=== PATIENT | female | born 1945 | race Caucasian/White ===

== ENCOUNTER 2022-12-18 07:55 | Day surgery (SDC) | payer MEDICARE ==
[2022-12-17 11:30] VITALS: BMI 41.5
[~2022-12-18 07:55] MED LIST: ALPRAZolam 0.25 MG TAB PO PRN; ALPRAZolam 0.5 MG TAB PO PRN; NITROGLYCERIN SL TABS 0.4 MG TAB SUBLINGUAL PRN
[2022-12-18] MEDS ORDERED: SODIUM CHLORIDE 0.9% 1,000 ML IV ONE (08:09)
[2022-12-18 08:29] LABS: Anisocytosis Slight; Basophils % (A) 0 %; Eosinophils # (A) 0.3 k/uL (0-0.7); Eosinophils % (A) 4 %; HGB 9.5 gm/dL (11.4-16.0); Lymphocytes # (A) 1.1 k/uL (1.0-4.8); Lymphocytes % (A) 17 %; MCHC 33.8 g/dL (31.0-37.0); MCV 85.8 fL (80.0-100.0); Mean Platelet Volume 7.5; Monocytes # (A) 0.5 k/uL (0-1.0); Monocytes % (A) 7 %; Neutrophils # (A) 4.7 k/uL (1.3-7.7); Neutrophils % (A) 69 %; Platelet Count 158 k/uL (150-450); RBC 3.27 m/uL (3.80-5.40); RDW 16.2 % (11.5-15.5); WBC 6.8 k/uL (3.8-10.6)
[2022-12-18] MEDS ORDERED: fentaNYL (PF) 50 MCG/ML 2 ML AMP ONE (08:59)
[2022-12-18] MEDS ORDERED: LIDOCAINE 1% INJ 10MG/ML (30 ML VIAL-PF) SQ ONE (09:12)
[2022-12-18] MEDS ORDERED: fentaNYL (PF) 50 MCG/1 ML VIAL IVP ONE (09:12)
[2022-12-18] MEDS ORDERED: MIDAZOLAM 2 MG/2 ML VIAL IVP ONE ×2 (09:20)
[2022-12-18] MEDS ORDERED: HEPARIN SODIUM 1,000 UN/ML (10ML VL) ONE (09:20)
[2022-12-18] MEDS ORDERED: HEPARIN SODIUM 1,000 UN/ML (10ML VL) IV ONE (09:24)
[2022-12-18] MEDS ORDERED: VERAPAMIL SYRINGE (5 MG/10 ML) INTRAARTER ONE (09:24)
[2022-12-18] MEDS ORDERED: IOPAMIDOL-370 100ML BTL INJ ONE ×2 (09:41→10:01)
[2022-12-18] MEDS ORDERED: ATROPINE SULFATE 0.1 MG/ML 10ML SYRINGE IV PRN (10:16)
[2022-12-18] MEDS ORDERED: MAG HYDROX/AL HYDROX/SIMETH 30 ML CUP PO PRN (10:16)
[2022-12-18] MEDS ORDERED: NITROGLYCERIN SL TABS 0.4 MG TAB SUBLINGUAL PRN (10:16)
[2022-12-18] MEDS ORDERED: RX INFO: IV CONTRAST WAS GIVEN 1 EACH MISC MISCELLANE PRN (10:16)
[2022-12-18] MEDS ORDERED: ZOLPIDEM 5 MG TAB PO PRN (10:16)
[2022-12-18] MEDS ORDERED: ALBUTEROL NEBULIZED 2.5 MG/3 ML INHALATION PRN (10:17)
--- NOTE | 2022-12-18 10:26 | P.CARDCATH ---
Date of Procedure: 12/18/22 Description of Procedure: PERCUTANEOUS TRANSLUMINAL CORONARY ANGIOPLASTY CLINICAL INFORMATION: The patient is a 77-year-old female with known history of severe COPD, PVD, hypertension and hyperlipidemia who recently had a non-STEMI and was found to have severe CAD. She was felt to be high risk for surgical intervention by the surgeon and the pulmonary service . Recommendations were made regarding angioplasty and stenting. The procedure as well as the risks and the complications were discussed with the patient who was in full understanding and agreement. PROCEDURE: The patient was brought to the [facility] in the fasting and semi- sedated state after receiving fentanyl and Benadryl, using Xylocaine anesthesia in the modified Seldinger technique a 6-Spanish sheath was introduced in the left radial artery subsequently a 6 Spanish EBU 3.75 guiding catheter was introduced into the system. After cannulating the left main, a 0.014 BMW J-wire was positioned in the distal left circumflex and another 0.014 BMW J-wire was advanced across the lesion and positioned distally. Following that a 3.0 x 12 NC Treck balloon was advanced and inflated at 10 atmosphere. After removing the balloon a Wizdee intravascular ultrasound catheter was introduced and images were obtained. Following that a 3.0 x 28 mm Xience danay point stent was deployed. It was dilated at 16. After removing the balloon a 4.0 by 12 mm NC Treck balloon was advanced to the ostium and one inflation at 12 dewey was done. Subsequently repeat intravascular ultrasound imaging was performed, after removing the catheter a 3.25 X15 mm NC Treck balloon was advanced and inflation in the distal segment of the stent was done at 12 dewey, 4.5 x 15 mm NC Treck was advanced afterward and inflation in the proximal segment of the stent was done at 10 dewey and subsequently a 5.0 x 8 mm NC Treck balloon was advanced to the distal left main and the ostium of the LAD and one inflation at 10 dewey was done. After the last inflation, after appropriate wait, the balloon and the guidewire were withdrawn back into the guiding catheter. Images were obtained and repeated. Those images reveal stable successful stenting. At that point, the guiding catheter, the balloon, and guidewire were removed. The sheath was removed. Hemostasis was obtained with and deployment of a TR band. There were no immediate complications. The patient was returned to the room in stable condition. Of note, the patient received 13,000 units of heparin as well as continued on Plavix. His ACT was followed. There was no immediate complications. She had no chest discomfort or significant EKG changes. RESULTS: Successful stenting of the ostium of the LAD with reduction of stenosis from 85% to less than 5 % with intravascular ultrasound imaging. RECOMMENDATIONS: The patient will continue on dual antiplatelet treatment for one year in addition to aggressive coronary risks modifications. She'll be scheduled to undergo staged PCI of the RCA. The findings and recommendations were discussed with the patient and the family, they are in full understanding and agreement. Duration of sedation: 52 minutes
[2022-12-18] MEDS ORDERED: SODIUM CHLORIDE 0.9% 1,000 ML in EMPTY BAG 1 BAG IV SCH (10:30)
[2022-12-18] MEDS: SODIUM CHLORIDE 0.9% 1,000 ML in EMPTY BAG 1 BAG IV SCH ×3 (11:09→22:11)
[2022-12-18 11:37] VITALS: RESP 16
[2022-12-18] MEDS: SYMBICORT 80-4.5 MCG INHALER INHALATION SCH (19:46)
[2022-12-18] MEDS: METOPROLOL TARTRATE 50 MG TAB PO SCH (21:06)
[2022-12-19 06:36] LABS: African American GFR (CKD) 83 (>60 ml/min/1.73 sqM); Anion Gap 8 mmol/L; Blood Urea Nitrogen 25 mg/dL (7-17); Calcium 8.8 mg/dL (8.4-10.2); Carbon Dioxide 31 mmol/L (22-30); Chloride 96 mmol/L (98-107); Glucose 109 mg/dL (74-99); Non-African American GFR(CKD) 72 (>60 ml/min/1.73 sqM); Potassium 4.1 mmol/L (3.5-5.1); Sodium 135 mmol/L (137-145)
[2022-12-19] MEDS: SODIUM CHLORIDE 0.9% 1,000 ML in EMPTY BAG 1 BAG IV SCH (08:56)
[2022-12-19] MEDS ORDERED: CLOPIDOGREL 75 MG TAB PO SCH (09:00)
[2022-12-19] MEDS ORDERED: MONTELUKAST 10 MG TAB PO SCH (09:00)
[2022-12-19] MEDS ORDERED: LOSARTAN 50 MG TAB PO SCH (09:00)
[2022-12-19] MEDS ORDERED: VENLAFAXINE HCL ER 75 MG CAP PO SCH (09:00)
[2022-12-19] MEDS ORDERED: hydroCHLOROthiazide 25 MG TAB PO SCH (09:00)
[2022-12-19] MEDS ORDERED: ASPIRIN 81 MG PO SCH (09:00)
[2022-12-19] MEDS ORDERED: ATORVASTATIN 40 MG TAB PO SCH (09:00)
[2022-12-19] MEDS: METOPROLOL TARTRATE 50 MG TAB PO SCH (09:03)
--- NOTE | 2022-12-19 09:23 | P.CRDCN ---
History of Present Illness History of present illness: This is a 77-year-old female who underwent cardiac catheterization with Dr. Darius bean on 12/18/2022. The patient underwent successful stenting of the ostium of the LAD with reduction of stenosis from 85% to less than 5%. Patient will also undergo staged PCI of the RCA in the future. Patient examined this morning at the bedside. Patient denies any chest pain or pressure. She denies any shortness of breath. Left radial cath site with pulse present. No hematoma noted. Patient's vital signs are stable. The patient was deemed stable for discharge home today. Patient is to continue on dual antiplatelet therapy with aspirin and Plavix. Please see EMR for further hospital course details. Discharge Diagnosis Coronary artery disease with recent non-STEMI, status post stenting of the ostium of the LAD Known severe stenosis in the mid RCA, patient to undergo PCI in the future Hypertension Hyperlipidemia Peripheral vascular disease COPD Nurse practitioner note has been reviewed by physician. Signing provider agrees with the documented findings, assessment, and plan of care. Past Medical History Past Medical History: Coronary Artery Disease (CAD), COPD, Eye Disorder, Hyperlipidemia, Hypertension, Osteoarthritis (OA), Pneumonia, Sleep Apnea/CPAP/BIPAP, Vascular Disorder Additional Past Medical History / Comment(s): See Dr Luevano's H&P. O2 use 2L per MO 28/10. PAD. No CPAP use. Cataracts. Back pain and problems. History of Any Multi-Drug Resistant Organisms: None Reported Past Surgical History: Adenoidectomy, Hysterectomy, Joint Replacement, Orthopedic Surgery, Tonsillectomy Additional Past Surgical History / Comment(s): Right femoral endarterectomy, bilateral knee replacements, right rotator cuff repair. Past Anesthesia/Blood Transfusion Reactions: No Reported Reaction, Motion Sickness Additional Past Anesthesia/Blood Transfusion Reaction / Comment(s): Hx Motion Sickness X1. States has O+ blood with antibodies. Past Psychological History: Anxiety, Panic Disorder Smoking Status: Former smoker Past Alcohol Use History: None Reported Additional Past Alcohol Use History / Comment(s): Quit smoking 1 yr ago, had smoked for 64 yrs. Past Drug Use History: None Reported - Past Family History Father Additional Family Medical History / Comment(s): Drinker; in his 90's. Sister(s) Family Medical History: Dementia Mother Family Medical History: Dementia Additional Family Medical History / Comment(s): in her 90's. Medications and Allergies Home Medications Medication Instructions Recorded Confirmed Type Acetaminophen [Tylenol Arthritis] 1,300 mg PO HS 10/19/22 12/17/22 History Albuterol Nebulized [Ventolin 2.5 mg INHALATION QID PRN 10/19/22 12/17/22 History Nebulized] Clopidogrel [Plavix] 75 mg PO DAILY 10/19/22 12/18/22 History Fluticasone Propion/Salmeterol 1 puff INHALATION DAILY 10/19/22 12/17/22 History [Fluticasone-Salmeterol 250-50] Montelukast [Singulair] 10 mg PO DAILY 10/19/22 12/17/22 History Rosuvastatin [Crestor] 20 mg PO DAILY 10/19/22 12/17/22 History Telmisartan/Hydrochlorothiazid 1 tab PO DAILY 10/19/22 12/17/22 History [Telmisartan-Hctz 80-25 mg Tab] Venlafaxine HCl [Effexor XR] 75 mg PO DAILY 10/19/22 12/17/22 History Aspirin 81 mg PO DAILY #30 tab 10/26/22 12/18/22 Rx Furosemide [Lasix] 20 mg PO BID #60 tab 10/26/22 12/17/22 Rx Metoprolol Tartrate [Lopressor] 50 mg PO BID #60 tab 10/26/22 12/17/22 Rx Fluticasone Propion/Salmeterol 1 inhalation PO BID 12/17/22 12/17/22 History [Advair 250-50 Diskus] Multivitamins, Thera [Multivitamin 1 tab PO DAILY 12/17/22 12/17/22 History (formulary)] Nitroglycerin Sl Tabs [Nitrostat] 0.4 mg SUBLINGUAL Q5M PRN #100 tab 12/19/22 Rx Allergies Allergy/AdvReac Type Severity Reaction Status Date / Time ibuprofen [From Motrin] Allergy Dyspnea Verified 12/18/22 08:15 levofloxacin [From Levaquin] Allergy Unknown Verified 12/18/22 08:15 NSAIDS (Non-Steroidal Allergy Dyspnea Verified 12/18/22 08:15 Anti-Inflamma Physical Exam Vitals: Vital Signs Temp Pulse Pulse Resp BP BP Pulse Ox 12/19/22 07:00 98.5 F 78 16 149/77 98 12/19/22 02:30 97.6 F 57 L 13 125/71 97 12/18/22 19:50 98 F 95 15 138/64 95 12/18/22 15:00 82 16 113/52 93 L 12/18/22 14:59 98.3 F 81 16 106/69 12/18/22 13:01 83 16 106/69 96 12/18/22 12:01 98.2 F 82 82 16 134/73 12/18/22 12:00 98.2 F 82 16 134/73 99 12/18/22 11:31 80 16 140/63 97 12/18/22 11:01 80 18 140/63 12/18/22 10:46 81 18 142/62 12/18/22 10:31 82 18 147/63 12/18/22 10:16 80 18 154/85 Intake and Output 12/18/22 12/19/22 12/19/22 22:59 06:59 14:59 Other: # Voids 1 1 Results 12/18/22 08:15 12/19/22 05:51 Comprehensive Metabolic Panel 12/19/22 Range/Units 05:51 Sodium 135 L (137-145) mmol/L Potassium 4.1 (3.5-5.1) mmol/L Chloride 96 L (98-107) mmol/L Carbon Dioxide 31 H (22-30) mmol/L BUN 25 H (7-17) mg/dL Creatinine 0.79 (0.52-1.04) mg/dL Glucose 109 H (74-99) mg/dL Calcium 8.8 (8.4-10.2) mg/dL Current Medications Generic Name Dose Route Start Last Admin Trade Name Freq PRN Reason Stop Dose Admin Al Hydroxide/Mg Hydroxide 30 ml 12/18/22 10:16 Mag Hydrox/Al Hydrox/Simeth 30 Ml Cup PO 01/17/23 10:17 Q4HR PRN Heartburn Albuterol Sulfate 2.5 mg 12/18/22 10:17 Albuterol Nebulized 2.5 Mg/3 Ml INHALATION 01/17/23 10:18 QID PRN Shortness Of Breath Alprazolam 0.25 mg 12/18/22 05:55 Alprazolam 0.25 Mg Tab PO 01/17/23 05:56 Q6HR PRN Mild Anxiety Alprazolam 0.5 mg 12/18/22 05:55 Alprazolam 0.5 Mg Tab PO 01/17/23 05:56 Q6HR PRN Moderate Anxiety Aspirin 81 mg 12/19/22 09:00 12/19/22 09:03 Aspirin 81 Mg PO 01/18/23 09:01 81 mg DAILY NOEL Administration Atorvastatin Calcium 40 mg 12/19/22 09:00 12/19/22 09:03 Atorvastatin 40 Mg Tab PO 01/18/23 09:01 40 mg DAILY NOEL Administration Atropine Sulfate 0.5 mg 12/18/22 10:16 Atropine Sulfate 0.1 Mg/Ml 10ml Syringe IV 01/17/23 10:17 ONCE PRN Symptomatic Bradycardia Budesonide/Formoterol Fumarate 2 puff 12/18/22 20:00 12/18/22 19:46 Symbicort 80-4.5 Mcg Inhaler INHALATION 2 puff RT-BID NOEL Administration Clopidogrel Bisulfate 75 mg 12/19/22 09:00 12/19/22 09:03 Clopidogrel 75 Mg Tab PO 01/18/23 09:01 75 mg DAILY NOEL Administration Hydrochlorothiazide 25 mg 12/19/22 09:00 12/19/22 09:03 Hydrochlorothiazide 25 Mg Tab PO 25 mg DAILY NOEL Administration Sodium Chloride 1,000 ml/ IV 1,000 mls @ 113.398 mls/hr 12/18/22 05:55 12/19/22 08:56 Solution IV 01/17/23 05:56 Not Given .Q8H50M NOEL 1 ML/KG/HR Losartan Potassium 150 mg 12/19/22 09:00 12/19/22 09:03 Losartan 50 Mg Tab PO 01/18/23 09:01 150 mg DAILY NOEL Administration Metoprolol Tartrate 50 mg 12/18/22 21:00 12/19/22 09:03 Metoprolol Tartrate 50 Mg Tab PO 01/17/23 21:01 50 mg BID NOEL Administration Miscellaneous Information 1 each 12/18/22 10:16 Rx Info: Iv Contrast Was Given 1 Each Misc MISCELLANE 12/20/22 10:17 DAILY PRN Per Protocol Montelukast Sodium 10 mg 12/19/22 09:00 12/19/22 09:03 Montelukast 10 Mg Tab PO 01/18/23 09:01 10 mg DAILY NOEL Administration Nitroglycerin 0.4 mg 12/18/22 10:16 Nitroglycerin Sl Tabs 0.4 Mg Tab SUBLINGUAL 01/17/23 10:17 Q5M PRN Chest Pain Venlafaxine HCl 75 mg 12/19/22 09:00 12/19/22 09:03 Venlafaxine Hcl Er 75 Mg Cap PO 01/18/23 09:01 75 mg DAILY NOEL Administration Zolpidem Tartrate 5 mg 12/18/22 10:16 Zolpidem 5 Mg Tab PO 01/17/23 10:17 HS PRN Insomnia Intake and Output 12/18/22 12/19/22 12/19/22 22:59 06:59 14:59 Other: # Voids 1 1 12/18/22 08:15 12/19/22 05:51
[2022-12-19] MEDS: SYMBICORT 80-4.5 MCG INHALER INHALATION SCH (09:39)
--- NOTE | 2022-12-19 11:42 | P.DS ---
Providers Attending physician: Taylor Trevino Consults: 12/18/22 10:16 Consult Physician Routine Consulting Provider: [facility] Consult Reason/Comments: Post Interventional patient Do you want consulting provider notified?: Already Contacted Primary care physician: Rolando Young [facility] Hospital Course: This is a 77-year-old female who underwent cardiac catheterization with Dr. Trevino on 12/18/2022. The patient underwent successful stenting of the ostium of the LAD with reduction of stenosis from 85% to less than 5%. Patient will also undergo staged PCI of the RCA in the future. Patient examined this morning at the bedside. Patient denies any chest pain or pressure. She denies any shortness of breath. Left radial cath site with pulse present. No hematoma noted. Patient's vital signs are stable. The patient was deemed stable for discharge home today. Patient is to continue on dual antiplatelet therapy with aspirin and Plavix. Please see EMR for further hospital course details. Discharge Diagnosis Coronary artery disease with recent non-STEMI, status post stenting of the ostium of the LAD Known severe stenosis in the mid RCA, patient to undergo PCI in the future Hypertension Hyperlipidemia Peripheral vascular disease COPD Nurse practitioner note has been reviewed by physician. Signing provider agrees with the documented findings, assessment, and plan of care. Plan - Discharge Summary Discharge Rx Participant: No New Discharge Prescriptions: New Nitroglycerin Sl Tabs [Nitrostat] 0.4 mg SUBLINGUAL Q5M PRN #100 tab PRN Reason: Chest Pain Continue Telmisartan/Hydrochlorothiazid [Telmisartan-Hctz 80-25 mg Tab] 1 tab PO DAILY Montelukast [Singulair] 10 mg PO DAILY Clopidogrel [Plavix] 75 mg PO DAILY Aspirin 81 mg PO DAILY #30 tab Furosemide [Lasix] 20 mg PO BID #60 tab Multivitamins, Thera [Multivitamin (formulary)] 1 tab PO DAILY Fluticasone Propion/Salmeterol [Advair 250-50 Diskus] 1 inhalation PO BID Venlafaxine HCl [Effexor XR] 75 mg PO DAILY Rosuvastatin [Crestor] 20 mg PO DAILY Fluticasone Propion/Salmeterol [Fluticasone-Salmeterol 250-50] 1 puff INHALATION DAILY Albuterol Nebulized [Ventolin Nebulized] 2.5 mg INHALATION QID PRN PRN Reason: Shortness Of Breath Acetaminophen [Tylenol Arthritis] 1,300 mg PO HS Metoprolol Tartrate [Lopressor] 50 mg PO BID #60 tab Discharge Medication List Acetaminophen [Tylenol Arthritis] 1,300 mg PO HS 10/19/22 [History] Albuterol Nebulized [Ventolin Nebulized] 2.5 mg INHALATION QID PRN 10/19/22 [History] Clopidogrel [Plavix] 75 mg PO DAILY 10/19/22 [History] Fluticasone Propion/Salmeterol [Fluticasone-Salmeterol 250-50] 1 puff INHALATION DAILY 10/19/22 [History] Montelukast [Singulair] 10 mg PO DAILY 10/19/22 [History] Rosuvastatin [Crestor] 20 mg PO DAILY 10/19/22 [History] Telmisartan/Hydrochlorothiazid [Telmisartan-Hctz 80-25 mg Tab] 1 tab PO DAILY 10/19/22 [History] Venlafaxine HCl [Effexor XR] 75 mg PO DAILY 10/19/22 [History] Aspirin 81 mg PO DAILY #30 tab 10/26/22 [Rx] Furosemide [Lasix] 20 mg PO BID #60 tab 10/26/22 [Rx] Metoprolol Tartrate [Lopressor] 50 mg PO BID #60 tab 10/26/22 [Rx] Fluticasone Propion/Salmeterol [Advair 250-50 Diskus] 1 inhalation PO BID 12/17/22 [History] Multivitamins, Thera [Multivitamin (formulary)] 1 tab PO DAILY 12/17/22 [History] Nitroglycerin Sl Tabs [Nitrostat] 0.4 mg SUBLINGUAL Q5M PRN #100 tab 12/19/22 [Rx] Follow up Appointment(s)/Referral(s): Taylor Trevino MD [STAFF PHYSICIAN] - 12/26/22 9:00 am (DR TREVINO FOLLOW UP APPOINTMENT IS ON FridayDec AT 9:00 AM ) Patient Instructions/Handouts: Moderate Sedation (DC), After Radial Heart Catheterization (GEN) Activity/Diet/Wound Care/Special Instructions: No driving for two days Ok to shower tomorrow but no baths, pools, lakes, doing dishes by hand for five days. Signs of infection IE: fever, rash, drainage from puncture site, swelling go to ER/doctor for immediate evaluation. Avoid using right wrist/hand to bend, flex, lift greater than 5 lbs for five days. For Heavy Bleeding of puncture site apply firm direct pressure and return to ER. Do not attempt to drive self. low sodium/low fat diet medications as directed by Cardiologists
[2022-12-19 15:42] VITALS: BP 149/77; PULSE 78
[2022-12-19 15:49] VITALS: TEMP 98.5
== END 2022-12-19 11:42 | disposition home or self-care (01) ==
LOC: CATHCVL 07:55 → 6NMEDSUR 10:00 → CATHCVL 12-19 11:42
PROVIDERS: ATTEND Internal Medicine Interventional Cardiology
DX: I25.10 Atherosclerotic heart disease of native coronary artery without angina pectoris (principal); J44.9 Chronic obstructive pulmonary disease, unspecified; I65.23 Occlusion and stenosis of bilateral carotid arteries; I10 Essential (primary) hypertension; I73.9 Peripheral vascular disease, unspecified; E78.5 Hyperlipidemia, unspecified; I25.2 Old myocardial infarction; E11.9 Type 2 diabetes mellitus without complications; Z88.6 Allergy status to analgesic agent; Z87.891 Personal history of nicotine dependence; Z79.82 Long term (current) use of aspirin; Z79.02 Long term (current) use of antithrombotics/antiplatelets; Z79.899 Other long term (current) drug therapy; Z79.51 Long term (current) use of inhaled steroids
CPT/HCPCS: 94640 ×2; 94760; 92978; 80048; 85025; C9600; C1769 ×2; C1887; C1894; C1753; C1874; C1725 ×5; J2250; J2001; J1644; Q9967; J3010

== ENCOUNTER → 2024-07-26 | Day surgery (SDC) | payer MEDICARE ==
[2024-07-26 07:03] VITALS: BP 160/68; PULSE 80; RESP 17; TEMP 96.9
[2024-07-26] MEDS: SIMETHICONE 40 MG/0.6 ML DROPS 2,000 MG/30 ML BOTTLE PO ONE (07:10)
== END ==
LOC: ORWHC2ENDO 05:59
PROVIDERS: ATTEND Internal Medicine Gastroenterology
DX: K31.819 Angiodysplasia of stomach and duodenum without bleeding (principal); K25.4 Chronic or unspecified gastric ulcer with hemorrhage; D50.9 Iron deficiency anemia, unspecified
CPT/HCPCS: 91110